=== PATIENT | male | born 1985 | race Caucasian/White ===

== ENCOUNTER → 2016-12-11 | Outpatient (CLI) | payer OTHER ==
[~2016-12-11] MED LIST: ATV5X PO; LISI-461 PO; LXP10 PO; ONDA4TAB7 SL
== END | disposition home or self-care (01) ==
LOC: C.PATHSPEC 15:06
PROVIDERS: ATTEND Urology
DX: Z30.2 Encounter for sterilization (principal)

== ENCOUNTER → 2017-02-15 | Outpatient (CLI) | payer OTHER ==
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
== END ==
LOC: C.RAD 15:44
PROVIDERS: ATTEND Nurse Practitioner
DX: M62.838 Other muscle spasm (principal)

== ENCOUNTER 2018-02-15 06:23 | Emergency (ER) | payer OTHER ==
[~2018-02-15] VITALS: Ht 188 cm; Wt 112.9 kg
[2018-02-15 06:29] VITALS: TEMP 36.7; Ht 188 cm; Wt 112.9 kg
[2018-02-15] MEDS ORDERED: ALBUTEROL 0.083% NEBU SOLN 3 ML VIAL INH STA (06:45)
[2018-02-15] MEDS ORDERED: IBUPROFEN 600 MG TAB PO STA (06:45)
[2018-02-15] MEDS ORDERED: ALBUTEROL HFA 8 GM INHALER INH STA (06:45)
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
[2018-02-15 08:20] VITALS: BP 115/75; PULSE 75; O2SAT 95
== END 2018-02-15 08:19 | disposition home or self-care (01) ==
LOC: C.EDB 06:25 → C.EDA 08:19
DX: M54.2 Cervicalgia (principal); S60.312A Abrasion of left thumb, initial encounter; M79.601 Pain in right arm; V89.2XXA Person injured in unspecified motor-vehicle accident, traffic, initial encounter; J45.909 Unspecified asthma, uncomplicated; I10 Essential (primary) hypertension; Z87.442 Personal history of urinary calculi; Z87.01 Personal history of pneumonia (recurrent); Z80.9 Family history of malignant neoplasm, unspecified; Z83.3 Family history of diabetes mellitus; Z82.49 Family history of ischemic heart disease and other diseases of the circulatory system; Z79.899 Other long term (current) drug therapy; Z91.030 Bee allergy status